=== PATIENT | male | born 1965 | race Caucasian/White ===

== ENCOUNTER 2022-04-09 09:13 | Emergency (ER) | payer SELFPAY ==
[~2022-04-09] VITALS: Ht 172.7 cm; Wt 68.0 kg
[2022-04-09 09:34] VITALS: BP_SYST 193
--- NOTE | 2022-04-09 09:47 | NUR ---
ED DR URIBE WENT INTO PT ROOM 8 AND ASSESSED PT
--- NOTE | 2022-04-09 09:48 | NUR ---
PT CAME TO ED FOR UNCONTROLLED ELEVATED BLOOD PRESSURE AND HERNIA BY UMBILICAL AREA. PT HAS EVEN UNLABORED RESPIRATIONS NAD PAIN LEVEL ACCORDING TO PT IS NOT WHAT BOTHERS HIM. PT STATES HE NEEDS SURGERY BUT CANNOT GET MEDICAL CLEARANCE DUE TO NOT HAVING HIS BP UNDER CONTROL. FAMILY BY BEDSIDE.
[2022-04-09] MEDS ORDERED: cloNIDine HCL 0.1 MG TABLET PO ONE ×2 (10:00→10:45)
--- NOTE | 2022-04-09 11:27 | NUR ---
ED DR URIBE IN ROOM 8 SPEAKING TO PT.
[2022-04-09] MEDS ORDERED: HYDR25TA4 PO (11:29)
[2022-04-09 11:41] VITALS: BP_SYST 154
--- NOTE | 2022-04-09 11:43 | NUR ---
Note undone in EDM - 04/09/22 at 1144 by [email or web address] Patient given written and verbal discharge instructions and verbalizes understanding. ER MD DR URIBE discussed with patient the results and treatment provided. Patient in stable condition. ID arm band removed. IV catheter removed intact and dressing applied, no active bleeding. Rx of [] given. Patient educated on pain management and to follow up with PMD. Pain Scale []. Opportunity for questions provided and answered. Medication side effect fact sheet provided.
--- NOTE | 2022-04-09 11:44 | NUR ---
Patient given written and verbal discharge instructions and verbalizes understanding. ER MD discussed with patient the results and treatment provided. Patient in stable condition. ID arm band removed. Rx of HYDROCLOROTHIAZIDE given. Patient educated on pain management and to follow up with PMD. Pain Scale . Opportunity for questions provided and answered. Medication side effect fact sheet provided.
== END 2022-04-09 11:41 | disposition home or self-care (01) ==
LOC: SED 09:13
DX: I16.0 Hypertensive urgency (principal); I10 Essential (primary) hypertension; Z79.899 Other long term (current) drug therapy
CPT/HCPCS: 99285

== ENCOUNTER 2022-05-07 09:01 | Emergency (ER) | payer MEDICAID ==
[~2022-05-07] VITALS: Ht 167.6 cm; Wt 81.6 kg
[~2022-05-07 09:01] MED LIST: HYDR25TA4 PO
[2022-05-07 09:09] VITALS: BP_SYST 177
[2022-05-07] MEDS ORDERED: HYDROCHLOROTHIAZIDE 12.5 MG CAPSULE (HCTZ) PO ONE (09:30)
--- NOTE | 2022-05-07 09:40 | NUR ---
MD ANN IN TRIAGE FOR MSE.
[2022-05-07] MEDS ORDERED: HYDR25TA4 PO (09:58)
--- NOTE | 2022-05-07 10:15 | NUR ---
Patient given written and verbal discharge instructions and verbalizes understanding. ER MD discussed with patient the results and treatment provided. Patient in stable condition. ID arm band removed. IV catheter removed intact and dressing applied, no active bleeding. Rx of HCTZ given. Patient educated on pain management and to follow up with PMD. Pain Scale 0/10. Opportunity for questions provided and answered. Medication side effect fact sheet provided. MD ANN MADE AWARE OF BP RECHECK 189/104. PT ASYMPTOMATIC. OK TO D/C PER MD ANN. PER MD ANN, PT INSTRUCTED TO TAKE ADDITIONAL DOSE OF HCTZ 50MG PO ONCE PRESCRIPTION IS FILLED TODAY.
== END 2022-05-07 10:15 | disposition home or self-care (01) ==
LOC: SED 09:01
DX: K42.9 Umbilical hernia without obstruction or gangrene (principal); I10 Essential (primary) hypertension; Z79.899 Other long term (current) drug therapy
CPT/HCPCS: 99283